=== PATIENT | male | born 1965 ===

== ENCOUNTER 2023-07-23 19:54 | Emergency (ER) | payer OTHER, SELFPAY ==
--- NOTE | ~2023-07-23 | XR_ITS ---
EXAMINATION: XR chest 2V DATE: 07/23/2023 20:20 INDICATION: Chest pain and shortness of breath TECHNIQUE: Frontal and lateral views of the chest are obtained COMPARISON: None available FINDINGS: There is a 1.6 cm nodule of the right lower lobe. There is mild atelectasis of the left gregory g base. No pleural effusion or pneumothorax. The cardiomediastinal silhouette is normal. There is mil d thoracic spondylosis. IMPRESSION: 1. No acute cardiopulmonary abnormality. 2. Indeterminate nodule of the right lower lobe. Follow-up with CT of the chest is recommended. Reviewed, dictated and finalized at location F.
[2023-07-23 19:56] VITALS: BP 122/65; PULSE 70; RESP 16; TEMP 36.2; O2SAT 96
--- NOTE | 2023-07-23 19:56 | ECG_ITS ---
Measurements Intervals [place] Rate: 66 P: 50 OK: 143 QRS: -32 QRSD: 104 T: 15 QT: 387 QTc: 406 Interpretive Statements SINUS RHYTHM LEFT AXIS DEVIATION POOR R WAVE PROGRESSION, CONSIDER ANTERIOR INFARCT BORDERLINE T WAVE ABNORMALITY- ANTERIOR LEADS BASELINE ARTIFACT- II ABNORMAL ECG NO PREVIOUS ECG AVAILABLE FOR COMPARISON Electronically Signed On 07-23-2023 20:13:47 CDT by Demarco Albright D.O.
[2023-07-23 20:13] LABS: Glucose Point of Care 178 mg/dl (65-105)
[2023-07-23 20:16] LABS: Basophils Absolute Auto 0.1 K/mm3 (0.0-0.1); Basophils Percent Auto 0.5 % (0.2-1.2); Eosinophils Absolute Auto 0.1 K/mm3 (0-0.3); Eosinophils Percent Auto 1.1 % (0-4.4); Hematocrit 43.7 % (42.0-52.0); Hemoglobin 14.5 g/dL (14.0-18.0); Immature Granulocyte Absolute 0.04 K/mm3 (0.00-0.031); Immature Granulocyte Percent A 0.4 % (0-0.5); Lymphocytes Absolute Auto 2.86 K/mm3 (0.9-3.2); Lymphocytes Percent Auto 27.4 % (18.3-44.2); Mean Corpuscular HGB Conc 33.2 g/dl (32-36); Mean Corpuscular Hemoglobin 29.9 pg (26-34); Mean Corpuscular Volume 90.1 fl (80-100); Monocytes Absolute Auto 0.7 K/mm3 (0.1-0.6); Monocytes Percent Auto 6.4 % (2.6-8.5); Neutrophils Absolute Auto 6.7 K/mm3 (1.3-6.7); Neutrophils Percent Auto 64.2 % (45.5-73.1); Platelet Count Result 235 k/mm3 (150-375); Red Blood Count 4.85 M/mm3 (4.6-6.20); White Blood Count 10.4 K/mm3 (4.5-10.0)
[2023-07-23 20:25] LABS: Alanine Aminotransferase 50 U/L (6-50); Albumin Level 4.7 g/dL (3.5-5.1); Alkaline Phosphatase 77 U/L (38-126); Anion Gap 9 mmol/L (8-16); Aspartate Amino Transferase 32 U/L (17-59); Bilirubin,Total 0.4 mg/dL (0.2-1.3); Blood Urea Nitrogen 18 mg/dL (9-20); Calcium 8.8 mg/dL (8.4-10.2); Carbon Dioxide 28 mmol/L (22-30); Chloride 101 mmol/L (98-107); Estimated CRCL calculation 68 ml/min; Estimated Glomerular Filt Rate > 60; Glucose 153 mg/dL (65-110); Lipase 85 U/L (23-300); Potassium 3.8 mmol/L (3.4-5.0); Sodium 138 mmol/L (137-145)
[2023-07-23 20:26] LABS: Partial Thromboplastin Time 24.6 SECONDS (22.3-36.8)
[2023-07-23 20:36] LABS: Troponin I < 0.012 ng/mL (0.000-0.034)
--- NOTE | 2023-07-23 21:05 | PC.NURSE ---
patient came to desk and stated he feels a lot better and going to leave. patient informed to come back to ER if symptoms return or get worse.
== END 2023-07-23 21:05 | disposition left against medical advice (07) ==
PROVIDERS: Emergency Provider Emergency Medicine
DX: R07.9 Chest pain, unspecified (principal)
CPT/HCPCS: 36415; 71046; 80053; 82948; 83690; 84484; 85025; 85610; 85730; 93005; 99199